=== PATIENT | male | born 1965 | race Caucasian/White ===

== ENCOUNTER 2018-10-23 17:55 | Emergency (ER) | payer OTHER ==
[~2018-10-23] VITALS: Ht 172.7 cm; Wt 86.2 kg
[2018-10-23] MEDS ORDERED: ATENOLOL100 MG (18:02)
[2018-10-23] MEDS ORDERED: ADULT ASPIRIN81 MG (18:02)
== END 2018-10-23 18:47 | disposition home or self-care (01) ==
LOC: ER 17:55
DX: L02.211 Cutaneous abscess of abdominal wall (principal)

== ENCOUNTER → 2022-07-31 | Emergency (ER) | payer OTHER ==
[~2022-07-31] VITALS: Ht 172.7 cm; Wt 92.1 kg
[~2022-07-31] MED LIST: ADULT ASPIRIN81 MG; ATENOLOL100 MG; COZAAR100 MG PO
== END | disposition home or self-care (01) ==
LOC: ER 04:54
DX: T78.40XA Allergy, unspecified, initial encounter (principal)

== ENCOUNTER 2024-01-07 15:45 | Emergency (ER) | payer OTHER ==
[~2024-01-07] VITALS: Ht 172.7 cm; Wt 95.3 kg
[2024-01-07] MEDS ORDERED: ATENOLOL50 MG PO (16:15)
[2024-01-07] MEDS ORDERED: CRESTOR10 MG PO (16:15)
[2024-01-07 17:23] LABS: HEMATOCRIT 42.9 % (39.0-48.0); HEMOGLOBIN 15.4 g/dL (13-16.00); MEAN CELL VOLUME 96.6 fL (80.0-100.00); MEAN CORPUSCULAR HEMOGLOBIN 34.6 pg (27.00-32.0); MEAN CORPUSCULAR HGB CONC 35.9 g/dl (32.0-36.0); PLATELET COUNT 218 K/uL (150-450); RED BLOOD COUNT 4.44 M/uL (4.00-6.00); RED CELL DISTRIBUTION WIDTH 12.8 % (11.5-14.5)
[2024-01-07 17:43] LABS: CALCIUM 9.2 mg/dL (8.5-10.1); CREATININE SERUM 1.27 mg/dL (0.70-1.30); GFR 58.04; POTASSIUM 4.08 mEq/L (3.5-5.1)
[2024-01-07 17:51] LABS: PH,URINE 6.5 (5.0-8.0); URINE APPEARANCE Clear; URINE BILIRRUBIN Negative (NEGATIVE); URINE BLOOD Negative; URINE COLOR Yellow; URINE GLUCOSE Negative (NEGATIVE); URINE LEUKOCYTE Negative; URINE NITRATE Negative; URINE PROTEIN Negative (NEGATIVE)
[2024-01-07 17:54] LABS: URINE RBC 2.7 uL (0.0-20.8); URINE WBC 2.2 uL (0.0-23.2)
[2024-01-07 18:04] LABS: URINE BACTERIA 3.7 uL (0.0-1933)
== END 2024-01-07 21:58 | disposition home or self-care (01) ==
LOC: ER 15:45
PROVIDERS: Emergency Medicine
DX: K57.30 Diverticulosis of large intestine without perforation or abscess without bleeding (principal)

== ENCOUNTER 2024-12-21 10:16 | Inpatient (IN) | payer OTHER ==
[~2024-12-21] VITALS: Ht 172.7 cm; Wt 93.9 kg
[~2024-12-21 10:16] MED LIST changes: +ATENOLOL50 MG PO; +CRESTOR10 MG PO
--- NOTE | 2024-12-21 11:38 | NUR ---
PTE ALERTA Y ORIENTADO X3 REFIERE QUE TIENE DOLOR ABDOMINAL LADO DERECHO QUE NO TOLERA ESTAR DE PIES PORQUE EL MISMO SE AGUDIZA. SE MIDEN S/V Y SE UBICA EN CAMA 8.
[2024-12-21] MEDS ORDERED: 0.9 % SODIUM CHLORIDE 1,000 ML IV SCH (12:15)
[2024-12-21] MEDS ORDERED: PIPERACILLIN/TAZOBACTAM SODIUM 3.375 GM VIAL IV ONE (12:15)
[2024-12-21 13:09] LABS: BASO % 0.2 % (0.1-1.2); EOS # 0.06 (0.04-0.54); EOS % 0.6 % (0.7-7.0); LYMPH # 1.35 (1.18-3.74); LYMPH % 13.8 % (19.3-53.1); MEAN PLATELET VOLUME 8.90 fl (9.4-12.4); MONO # 0.99 (0.24-0.82); MONO % 10.1 % (4.7-12.5); NEUT # 7.32 (1.56-6.13); NEUT % 74.8 % (34.0-71.1); RED CELL DISTRIBUTION WIDTH 12.5 % (11.6-14.4)
[2024-12-21 13:31] LABS: COVID-19 AG NEGATIVE (NEGATIVE)
[2024-12-21 13:34] LABS: INR 0.97
--- NOTE | 2024-12-21 13:42 | NUR ---
SE REALIZA LAB Y SE ADMINISTRA TX SARAH ORDEN MEDICA BAJO MEDIDAS ASEPTICAS. S ORIENTA PTE QUIEN REFIERE ENTENDER Y ACEPTAR
[2024-12-21 13:44] LABS: BUN CREA RATIO 11.0 (7.0-25.0); CREATININE SERUM 1.14 mg/dL (0.70-1.30); GFR 65.52; GLUCOSE FASTING 114.0 mg/dL (65-100); OSMOLALITY SERUM 280.0 MOSM/KG (275-295)
[2024-12-21 14:42] LABS: URINE APPEARANCE Clear; URINE BILIRRUBIN Negative (NEGATIVE); URINE BLOOD Negative; URINE COLOR Yellow; URINE GLUCOSE Negative (NEGATIVE); URINE KETONE Negative (NEGATIVE); URINE LEUKOCYTE Negative; URINE NITRATE Negative; URINE PROTEIN Negative (NEGATIVE); URINE UROBILINOGEN 0.2 E.U./dl
[2024-12-21 15:05] LABS: URINE BACTERIA 1.1 uL (0.0-1933); URINE CAST 0.00 uL (0.0-1.40); URINE EPITHELIAL CELLS 1.2 uL (0.0-38.8); URINE RBC 0.4 uL (0.0-20.8); URINE WBC 1.3 uL (0.0-23.2)
[2024-12-21] MEDS ORDERED: MORPHINE SULFATE 4 MG/ML VIAL IV ONE (16:45)
[2024-12-21] MEDS ORDERED: LOSARTAN POTASSIUM 100 MG TABLET PO SCH (17:42)
[2024-12-21] MEDS ORDERED: RINGERS SOLUTION,LACTATED 1,000 ML IV SCH (17:45)
[2024-12-21] MEDS ORDERED: FAMOTIDINE/PF 20 MG/2 ML VIAL IV SCH (17:47)
[2024-12-21] MEDS ORDERED: PIPERACILLIN/TAZOBACTAM SODIUM 3.375 GM in DEXTROSE 5 % IN WATER 100 ML IV SCH (18:00)
[2024-12-21] MEDS ORDERED: MORPHINE SULFATE 4 MG/ML VIAL IV PRN (18:00)
[2024-12-22 06:47] LABS: BASO % 0.4 % (0.1-1.2); EOS # 0.08 (0.04-0.54); EOS % 1.0 % (0.7-7.0); LYMPH # 1.24 (1.18-3.74); LYMPH % 14.9 % (19.3-53.1); MEAN PLATELET VOLUME 9.50 fl (9.4-12.4); MONO # 0.95 (0.24-0.82); MONO % 11.4 % (4.7-12.5); NEUT # 5.99 (1.56-6.13); NEUT % 71.8 % (34.0-71.1); RED CELL DISTRIBUTION WIDTH 12.2 % (11.6-14.4)
[2024-12-22 07:04] LABS: ERYTHROCYTE SEDIMENTATION RATE 35 mm/hr (0-20)
[2024-12-22 07:29] LABS: ALT/SGPT 52.0 U/L (12-78); AST/SGOT 15.0 U/L (15-37); BILIRUBIN TOTAL 0.99 mg/dL (0.3-1.2); BUN CREA RATIO 12.0 (7.0-25.0); CREATININE SERUM 0.97 mg/dL (0.70-1.30); GFR 78.95; GLOBULINA 3.0 G/DL (2.4-3.5); GLUCOSE FASTING 112.0 mg/dL (65-100); OSMOLALITY SERUM 280.0 MOSM/KG (275-295)
[2024-12-22 08:00] VITALS: BP 143/91; O2SAT 97
[2024-12-22 14:40] LABS: CHOL HDL RATIO 3.3 (0-5.0); HDL 51.0 mg/dl (40-60); LDL 96.0 mg/dl (0-130); VLDL 19.0 (0-39)
[2024-12-22 15:22] VITALS: BP 154/90; O2SAT 99
[2024-12-22] MEDS ORDERED: ATENOLOL 50 MG TABLET PO SCH (17:00)
[2024-12-22] MEDS ORDERED: AMINO ACIDS 4.25 %/DEXTROSE 5% 1,000 ML PERIFERAL SCH (17:00)
[2024-12-22 17:15] VITALS: BP 121/72; O2SAT 99
[2024-12-23 01:17] VITALS: BP 133/85; O2SAT 99
[2024-12-23 08:00] VITALS: BP 125/83; O2SAT 97
[2024-12-23 16:05] VITALS: BP 141/91; O2SAT 99
[2024-12-24 04:34] VITALS: BP 132/86; O2SAT 98
[2024-12-24 09:14] VITALS: BP 120/80; O2SAT 97
[2024-12-24 13:56] LABS: BASO % 0.4 % (0.1-1.2); EOS # 0.11 (0.04-0.54); EOS % 1.5 % (0.7-7.0); LYMPH # 1.17 (1.18-3.74); LYMPH % 15.9 % (19.3-53.1); MEAN PLATELET VOLUME 8.70 fl (9.4-12.4); MONO # 0.73 (0.24-0.82); MONO % 9.9 % (4.7-12.5); NEUT # 5.26 (1.56-6.13); NEUT % 71.8 % (34.0-71.1); RED CELL DISTRIBUTION WIDTH 12.2 % (11.6-14.4)
[2024-12-24 14:45] LABS: ALT/SGPT 37.0 U/L (12-78); AST/SGOT 16.0 U/L (15-37); BILIRUBIN TOTAL 0.62 mg/dL (0.3-1.2); BUN CREA RATIO 11.0 (7.0-25.0); CREATININE SERUM 1.29 mg/dL (0.70-1.30); GFR 56.81; GLOBULINA 3.2 G/DL (2.4-3.5); GLUCOSE FASTING 187.0 mg/dL (65-100); OSMOLALITY SERUM 283.0 MOSM/KG (275-295)
[2024-12-24 16:30] VITALS: BP 134/82; O2SAT 97
[2024-12-24] MEDS ORDERED: DIATRIZOATE MEGLUMINE, SODIUM 30 ML BOTTLE PO NR (17:15)
[2024-12-25 00:36] VITALS: BP 121/82; O2SAT 99
[2024-12-25] MEDS ORDERED: DIATRIZOATE MEGLUMINE, SODIUM 30 ML BOTTLE PO NR (08:00)
[2024-12-25 09:00] VITALS: BP 137/89; O2SAT 97
[2024-12-25 16:00] VITALS: BP 155/73; O2SAT 98
[2024-12-26 02:05] VITALS: BP 131/76; O2SAT 100
[2024-12-26 09:20] VITALS: BP 143/89; O2SAT 96
[2024-12-26 16:00] VITALS: BP 134/84; O2SAT 99
[2024-12-27 01:25] VITALS: BP 135/80; O2SAT 98
[2024-12-27 08:00] VITALS: BP 119/73; O2SAT 97
[2024-12-27] MEDS ORDERED: INTESTINEX680 M1 PO (14:02)
[2024-12-27] MEDS ORDERED: CIPRO500 MG PO (14:02)
[2024-12-27] MEDS ORDERED: LEVSIN/SL0.125 MG SL (14:02)
[2024-12-27] MEDS ORDERED: METRONIDAZOLE500 MG PO (14:02)
[2024-12-27] MEDS ORDERED: PANTOPRAZOLE SO20 MG PO (14:02)
[2024-12-27] MEDS ORDERED: TRAM1TAB98 PO (14:02)
[2024-12-27] MEDS ORDERED: ATENOLOL50 MG PO (14:02)
[2024-12-27] MEDS ORDERED: LOSARTAN POTAS100 MG PO (14:02)
== END 2024-12-27 16:30 | DRG 392 ==
LOC: ER 11:56 → SEC-K 17:49 → SURG 17:49 → SURH 12-26 11:36
PROVIDERS: Emergency Medicine; General Practice; ADMIT Internal Medicine; ATTEND Internal Medicine
PROC: BW21ZZZ Computerized Tomography (CT Scan) of Abdomen and Pelvis (ICD-10-PCS; principal; 2024-12-21)
PROC: BW21ZZZ Computerized Tomography (CT Scan) of Abdomen and Pelvis (ICD-10-PCS; 2024-12-24)
DX: K57.20 Diverticulitis of large intestine with perforation and abscess without bleeding (principal); I10 Essential (primary) hypertension; R73.9 Hyperglycemia, unspecified

== ENCOUNTER 2025-06-12 01:54 | Emergency (ER) | payer OTHER ==
[~2025-06-12] VITALS: Ht 170.2 cm; Wt 90.7 kg
[~2025-06-12 01:54] MED LIST changes: +CIPRO500 MG PO; +INTESTINEX680 M1 PO; +LEVSIN/SL0.125 MG SL; +LOSARTAN POTAS100 MG PO; +METRONIDAZOLE500 MG PO; +PANTOPRAZOLE SO20 MG PO; +TRAM1TAB98 PO
[2025-06-12] MEDS ORDERED: KETOROLAC TROMETHAMINE 30 MG VIAL IM STA (03:25)
[2025-06-12] MEDS ORDERED: KETOROLAC TROMETHAMINE 30 MG VIAL ONE (03:26)
[2025-06-12] MEDS ORDERED: TRAM1TAB98 PO (05:09)
== END 2025-06-12 08:08 | disposition home or self-care (01) ==
LOC: ER 01:55
DX: S80.02XA Contusion of left knee, initial encounter (principal); W18.39XA Other fall on same level, initial encounter; Y93.89 Activity, other specified; Y92.89 Other specified places as the place of occurrence of the external cause; Y99.9 Unspecified external cause status; I10 Essential (primary) hypertension